=== PATIENT | female | born 1985 | race Caucasian/White ===

== ENCOUNTER → 2018-11-03 | Outpatient (CLI) | payer OTHER ==
[~2018-11-03] MED LIST: ALBU90OI61 INH; ASPI325 PO; AZIT250 PO; CYCL10 PO; DICY20 PO; HYDACE5 PO; IBUP600 PO; MEDR150I; MEDR150I IM; NAPR250 PO; NAPR500 PO; NITR100CA PO; RANI150 PO; RXALBOI INH; TRAM50 PO; TRIM250 PO
[2018-11-03 12:10] LABS: BASOPHILS ABSOLUTE AUTO 0.05 K/mm3 (0.00-0.23); BASOPHILS PERCENT AUTO 0 % (0-2); EOSINOPHILS ABSOLUTE AUTO 0.05 K/mm3 (0.00-0.68); EOSINOPHILS PERCENT AUTO 0 % (0-6); Hematocrit 42.1 % (33.0-51.0); Hemoglobin 14.2 g/dL (11.5-16.0); IMMATURE GRAN ABSOLUTE AUTO 0.03 K/mm3 (0.00-0.10); IMMATURE GRAN PERCENT AUTO 0 % (0-1); LYMPHOCYTES ABSOLUTE AUTO 1.49 K/mm3 (0.84-5.20); LYMPHOCYTES PERCENT AUTO 11 % (21-46); MONOCYTES ABSOLUTE AUTO 0.53 K/mm3 (0.16-1.47); MONOCYTES PERCENT AUTO 4 % (4-13); Mean Corpuscular HGB 28.9 pg (26.0-34.0); Mean Corpuscular HGB Conc 33.7 g/dL (31.5-36.5); Mean Corpuscular Volume 86 fL (80-100); Mean Platelet Volume 10.5 fL (9.1-12.4); NEUTROPHILS ABSOLUTE AUTO 11.95 K/mm3 (1.96-9.15); NEUTROPHILS PERCENT AUTO 85 % (41-73); Platelet Count 303 K/mm3 (150-400); RDW Coefficient Variation 13.8 % (11.7-14.2); RDW Standard Deviation 42.8 fL (35.1-46.3); Red Blood Cell Count 4.92 M/mm3 (3.80-5.20)
[2018-11-03 12:25] LABS: Alanine Aminotransfer (ALT/SGP 34 U/L (12-78); Albumin, Blood 4.1 g/dL (3.4-5.0); Alk Phos 64 U/L (40-126); Anion Gap 13 mmol/L (6-16); Aspartate Aminotrans (AST/SGOT 19 U/L (12-37); Bilirubin, Total 0.5 mg/dL (0.1-1.0); Blood Urea Nitrogen 15 mg/dL (8-24); CO2, Blood 24 mmol/L (21-32); Calcium, Blood 9.2 mg/dL (8.5-10.1); Chloride, Blood 105 mmol/L (98-108); Globulin, Blood 4.2 g/dL (2.2-4.0); Glomerular Filtration Rate >60 (60-); Glucose, Blood 101 mg/dL (70-99); Potassium, Blood 4.1 mmol/L (3.5-5.5); Sodium, Blood 142 mmol/L (136-145); Total Protein, Blood 8.3 g/dL (6.4-8.2)
== END | disposition home or self-care (01) ==
LOC: LAB SHORT 11:59 → LAB EV 11:59
PROVIDERS: Physician Assistant
DX: R11.2 Nausea with vomiting, unspecified (principal)
CPT/HCPCS: 80053; 83690; 85025

== ENCOUNTER 2020-03-12 13:08 | Emergency (ER) | payer OTHER ==
[~2020-03-12] VITALS: Ht 152.4 cm; Wt 112.0 kg
== END 2020-03-12 14:42 | disposition home or self-care (01) ==
LOC: ER 13:08
DX: K02.9 Dental caries, unspecified (principal); Z88.8 Allergy status to other drugs, medicaments and biological substances
CPT/HCPCS: 64400; 99282-25

== ENCOUNTER 2020-05-24 00:02 | Day surgery (SDC) | payer OTHER ==
[~2020-05-24 00:02] MED LIST changes: +Buspirone HCl10 MG PO; +CALCIUM 600 MG1 EAC2 PO; +Depo-Prove150 MG/11; +IBU800 M1 PO; -MEDR150I IM
== END 2020-05-24 16:02 | disposition home or self-care (01) ==
LOC: ATC 00:02
DX: K04.7 Periapical abscess without sinus (principal)
CPT/HCPCS: 96365; J3490

== ENCOUNTER 2020-05-25 00:08 | Day surgery (SDC) | payer OTHER | END 2020-05-25 08:22 | disposition home or self-care (01) | LOC: ATC 00:08 | DX: K04.7 Periapical abscess without sinus (principal) | CPT/HCPCS: 96365 ==

== ENCOUNTER → 2021-07-19 | Outpatient (CLI) | payer OTHER | END | disposition home or self-care (01) | LOC: LAB 14:29 → LAB SHORT 14:29 | DX: Z20.822 Contact with and (suspected) exposure to COVID-19 (principal) | CPT/HCPCS: U0003 ==

== ENCOUNTER → 2023-05-31 | Outpatient (CLI) | payer OTHER ==
[2023-05-31 10:26] LABS: BASOPHILS ABSOLUTE AUTO 0.05 K/mm3 (0.00-0.23); BASOPHILS PERCENT AUTO 1 % (0-2); EOSINOPHILS ABSOLUTE AUTO 0.09 K/mm3 (0.00-0.68); EOSINOPHILS PERCENT AUTO 1 % (0-6); Hematocrit 39.3 % (33.0-51.0); Hemoglobin 13.4 g/dL (11.5-16.0); IMMATURE GRAN ABSOLUTE AUTO 0.02 K/mm3 (0.00-0.10); IMMATURE GRAN PERCENT AUTO 0 % (0-1); LYMPHOCYTES ABSOLUTE AUTO 2.45 K/mm3 (0.84-5.20); LYMPHOCYTES PERCENT AUTO 31 % (21-46); MONOCYTES ABSOLUTE AUTO 0.34 K/mm3 (0.16-1.47); MONOCYTES PERCENT AUTO 4 % (4-13); Mean Corpuscular HGB 29.8 pg (26.0-34.0); Mean Corpuscular HGB Conc 34.1 g/dL (31.5-36.5); Mean Corpuscular Volume 87 fL (80-100); Mean Platelet Volume 10.9 fL (9.1-12.4); NEUTROPHILS ABSOLUTE AUTO 4.97 K/mm3 (1.96-9.15); NEUTROPHILS PERCENT AUTO 63 % (41-73); Platelet Count 251 K/mm3 (150-400); RDW Coefficient Variation 13.5 % (11.7-14.2); White Blood Cell Count 7.92 K/mm3 (4.00-11.30)
[2023-05-31 10:37] LABS: Albumin, Blood 3.4 g/dL (3.4-5.0); Albumin/Globulin Ratio 0.9 (0.8-1.8); Bilirubin, Total 0.3 mg/dL (0.1-1.0); Bun/Creatinine Ratio 11.7 (12.0-20.0); Calcium, Blood 8.6 mg/dL (8.5-10.1); Creatinine, Blood 0.6 mg/dL (0.40-1.00); Globulin, Blood 3.7 g/dL (2.2-4.0); Potassium, Blood 3.7 mmol/L (3.5-5.5); Total Protein, Blood 7.1 g/dL (6.4-8.2)
== END | disposition home or self-care (01) ==
LOC: LAB 10:22 → LAB SHORT 10:22
PROVIDERS: Physician Assistant
DX: R11.0 Nausea (principal)
CPT/HCPCS: 80053; 83690; 85025

== ENCOUNTER 2024-11-25 08:16 | Emergency (ER) | payer OTHER ==
[~2024-11-25] VITALS: Ht 154.9 cm; Wt 103.0 kg
[~2024-11-25 08:16] MED LIST changes: +ACET500 PO; +BENZ100A PO; +Ibuprofen600 MG PO; +LIDO700A20 TOP; +MEDROXYPRO150 MG/1 M; +PROZAC40 MG PO
[2024-11-25 09:13] VITALS: BP 160/84
[2024-11-25] MEDS ORDERED: Diphth,Pertuss(Acell),Tet Vac 0.5 ML VIAL IM ONE (09:20)
[2024-11-25] MEDS ORDERED: Amoxicillin/Clavulanate K 875 MG Tab PO ONE (09:20)
[2024-11-25] MEDS ORDERED: AMOCLA875 PO (10:02)
== END 2024-11-25 10:41 | disposition home or self-care (01) ==
LOC: ER 08:16
DX: S81.852A Open bite, left lower leg, initial encounter (principal); G43.909 Migraine, unspecified, not intractable, without status migrainosus; W54.0XXA Bitten by dog, initial encounter; Z79.899 Other long term (current) drug therapy; Z88.8 Allergy status to other drugs, medicaments and biological substances
CPT/HCPCS: 90471; 90715; 99283-25; A9270

== ENCOUNTER 2024-12-04 09:16 | Day surgery (SDC) | payer OTHER ==
[~2024-12-04 09:16] MED LIST changes: +AMOCLA875 PO
== END 2024-12-04 23:00 | disposition home or self-care (01) ==
LOC: WOUND 09:16
DX: S81.852D Open bite, left lower leg, subsequent encounter (principal); W54.0XXD Bitten by dog, subsequent encounter; F17.200 Nicotine dependence, unspecified, uncomplicated; Z88.8 Allergy status to other drugs, medicaments and biological substances
CPT/HCPCS: G0463

== ENCOUNTER 2024-12-18 00:34 | Day surgery (SDC) | payer OTHER | END 2024-12-18 23:00 | disposition home or self-care (01) | LOC: WOUND 00:34 | DX: S81.852D Open bite, left lower leg, subsequent encounter (principal); L03.119 Cellulitis of unspecified part of limb; W54.0XXD Bitten by dog, subsequent encounter | CPT/HCPCS: G0463 ==

== ENCOUNTER 2024-12-23 07:39 | Emergency (ER) | payer OTHER ==
[~2024-12-23] VITALS: Ht 154.9 cm; Wt 100.2 kg
[2024-12-23] MEDS ORDERED: Dexamethasone Sod Phos 10 MG/ML 1ML VIAL PO ONE (09:05)
[2024-12-23] MEDS ORDERED: Naproxen 250 MG TAB PO ONE (09:05)
[2024-12-23] MEDS ORDERED: BENZ100A PO (09:41)
[2024-12-23] MEDS ORDERED: ALBU90OI INH (09:41)
[2024-12-23] MEDS ORDERED: PRED20 PO (09:41)
[2024-12-23 10:26] VITALS: BP 152/91
[2024-12-23 21:02] LABS: Influenza B, PCR NEGATIVE (NEGATIVE); Resp Syncytial Virus, PCR NEGATIVE (NEGATIVE); SARS-Cov-2 (COVID-19) PCR, MMC NEGATIVE (NEGATIVE)
[2024-12-23 21:40] LABS: Influenza A, PCR POSITIVE (NEGATIVE)
== END 2024-12-23 10:27 | disposition home or self-care (01) ==
LOC: ER 07:39
PROVIDERS: Emergency Medicine
DX: J06.9 Acute upper respiratory infection, unspecified (principal); Z88.8 Allergy status to other drugs, medicaments and biological substances; Z79.52 Long term (current) use of systemic steroids; Z79.2 Long term (current) use of antibiotics; Z79.899 Other long term (current) drug therapy
CPT/HCPCS: 0241U; 71046; 99283-25; A9270; J1100

== ENCOUNTER 2024-12-28 05:03 | Day surgery (SDC) | payer OTHER ==
[~2024-12-28 05:03] MED LIST changes: +ALBU90OI INH; +PRED20 PO
[2024-12-28] MEDS ORDERED: Lidocaine HCl 4% Cream 5 GM ONE (09:01)
== END 2024-12-28 23:00 | disposition home or self-care (01) ==
LOC: WOUND 05:03
DX: S81.852A Open bite, left lower leg, initial encounter (principal); W54.0XXA Bitten by dog, initial encounter
CPT/HCPCS: A9270

== ENCOUNTER 2025-01-04 04:10 | Day surgery (SDC) | payer OTHER ==
[2025-01-04] MEDS ORDERED: Lidocaine HCl 4% Cream 5 GM ONE (09:28)
== END 2025-01-04 23:00 | disposition home or self-care (01) ==
LOC: WOUND 04:10
DX: S81.852A Open bite, left lower leg, initial encounter (principal); W54.0XXA Bitten by dog, initial encounter
CPT/HCPCS: A9270

== ENCOUNTER 2025-01-11 03:20 | Day surgery (SDC) | payer OTHER ==
[2025-01-11] MEDS ORDERED: Lidocaine HCl 4% Cream 5 GM ONE (09:30)
== END 2025-01-11 23:00 | disposition home or self-care (01) ==
LOC: WOUND 03:20
DX: S81.852A Open bite, left lower leg, initial encounter (principal); W54.0XXA Bitten by dog, initial encounter
CPT/HCPCS: A9270

== ENCOUNTER 2025-02-01 03:27 | Day surgery (SDC) | payer OTHER | END 2025-02-01 23:00 | disposition home or self-care (01) | LOC: WOUND 03:27 | DX: S81.852D Open bite, left lower leg, subsequent encounter (principal); W54.0XXD Bitten by dog, subsequent encounter; Z87.828 Personal history of other (healed) physical injury and trauma | CPT/HCPCS: G0463 ==

== ENCOUNTER 2025-09-03 05:21 | Emergency (ER) | payer OTHER ==
[~2025-09-03] VITALS: Ht 157.5 cm; Wt 116.1 kg
[2025-09-03 05:28] VITALS: BP 176/90
[2025-09-03] MEDS ORDERED: IBUP600 PO (06:31)
== END 2025-09-03 06:41 | disposition home or self-care (01) ==
LOC: ER 05:21
DX: S50.02XA Contusion of left elbow, initial encounter (principal); Z88.8 Allergy status to other drugs, medicaments and biological substances; Z79.899 Other long term (current) drug therapy; W01.198A Fall on same level from slipping, tripping and stumbling with subsequent striking against other object, initial encounter
CPT/HCPCS: 73070; 99283-25

== ENCOUNTER 2025-09-28 19:49 | Emergency (ER) | payer OTHER ==
[~2025-09-28] VITALS: Ht 154.9 cm; Wt 116.1 kg
[2025-09-28] MEDS ORDERED: ONDA4ODT MM (20:03)
[2025-09-28] MEDS ORDERED: RX Prepack 2 Tabs Ondansetron ODT 4MG UD ONE ×2 (20:05→22:35)
[2025-09-28] MEDS ORDERED: Ondansetron 4 MG SoluTab BC ONE (20:05)
[2025-09-28 22:22] LABS: CORONAVIRUS COVID-19 AG Negative (NEGATIVE)
[2025-09-28 22:40] VITALS: BP 158/98
== END 2025-09-28 22:45 | disposition home or self-care (01) ==
LOC: ER 19:49
PROVIDERS: Student in an Organized Health Care Education/Training Program
DX: J06.9 Acute upper respiratory infection, unspecified (principal); R11.2 Nausea with vomiting, unspecified; Z79.52 Long term (current) use of systemic steroids; Z79.899 Other long term (current) drug therapy; Z88.8 Allergy status to other drugs, medicaments and biological substances
CPT/HCPCS: 87428-QW; 99283; A9270